=== PATIENT | female | born 1990 | race Caucasian/White ===

== ENCOUNTER 2022-08-09 19:59 | Inpatient (IN) | payer OTHER ==
[2022-08-09 20:04] VITALS: BMI 44.4
[2022-08-09] MEDS ORDERED: SODIUM CHLORIDE 0.9% 500 ML INFUS.BAG IV ONE ×2 (20:57→22:15)
[2022-08-09] MEDS ORDERED: ONDANSETRON 4 MG/2 ML VIAL IVPUSH ONE (20:57)
[2022-08-09] MEDS ORDERED: ACETAMINOPHEN 1000 MG/100 ML BAG IVPB ONE (20:57)
[2022-08-09] MEDS ORDERED: ONDANSETRON 4 MG/2 ML VIAL ONE (21:29)
[2022-08-09] MEDS ORDERED: ACETAMINOPHEN INJECTION 100 ML IVPB ONE (21:29)
[2022-08-09 22:07] LABS: BASO % 0.2 % (0-2.0); HEMATOCRIT 44.1 % (32.4-45.2); HEMOGLOBIN 14.1 GM/dL (10.7-15.3); MCH 26.8 pg (25.7-33.7); MCHC 31.8 g/dl (32.0-36.0); MEAN PLT VOLUME 8.7 fl (7.5-11.1); MONO % 3.2 % (3.8-10.2); NEUT % 90.6 % (42.8-82.8); PLATELET COUNT 351 10^3/uL (134-434); RBC 5.25 M/mm3 (3.60-5.2); RDW 14.6 % (11.6-15.6); WHITE BLOOD COUNT 18.7 K/mm3 (4.0-10.0)
[2022-08-09 22:08] LABS: ALBUMIN 3.6 g/dl (3.4-5.0); BLOOD UREA NITROGEN 14.3 mg/dL (7-18); CALCIUM 9.6 mg/dL (8.5-10.1)
[2022-08-09 22:11] LABS: CREATININE 1.2 mg/dL (0.55-1.3)
[2022-08-09 22:11] LABS: EPI CELLS >36 /uL (0-25.1); HCG,QUALITATIVE URINE Negative; HYALINE CASTS 2 /uL (0-3.1); PH,URINE 5.5 (5.0-8.0); URINE APPEARANCE CLOUDY; URINE BACTERIA 1137 /uL (0-1359); URINE BILIRUBIN NEGATIVE (NEGATIVE); URINE COLOR YELLOW; URINE GLUCOSE (UA) NEGATIVE (NEGATIVE); URINE KETONE 2+ (NEGATIVE); URINE LEUK ESTERASE NEGATIVE (NEGATIVE); URINE NITRITE NEGATIVE (NEGATIVE); URINE PROTEIN TRACE (NEGATIVE); URINE RBC 1716 /uL (0-23.9); URINE WBC 29 /uL (0-25.8)
[2022-08-09 22:13] LABS: BILIRUBIN,TOTAL 0.3 mg/dL (0.2-1); TOT PROT 7.8 g/dl (6.4-8.2)
[2022-08-09 22:44] LABS: URINE CRYSTALS NEGATIVE /hpf
[2022-08-10] MEDS ORDERED: CEFTRIAXONE 1,000 MG in DEXTROSE 5%-WATER - 50 ML IVPB ONE (00:55)
[2022-08-10] MEDS ORDERED: CEFTRIAXONE 1 GM/50 ML BAG ONE (01:33)
[2022-08-10] MEDS ORDERED: TAMSULOSIN HCL 0.4 MG CAP PO ONE (01:42)
[2022-08-10] MEDS ORDERED: TAMSULOSIN HCL 0.4 MG CAP ONE (02:25)
[2022-08-10] MEDS ORDERED: ACETAMINOPHEN 1000 MG/100 ML BAG IVPB PRN (02:32)
[2022-08-10] MEDS ORDERED: SODIUM CHLORIDE 1,000 ML IV SCH (02:45)
[2022-08-10] MEDS ORDERED: ONDANSETRON 4 MG/2 ML VIAL IVPUSH PRN (05:00)
[2022-08-10] MEDS ORDERED: MELATONIN 5 MG TABLETS PO PRN (05:06)
[2022-08-10 07:13] LABS: BASO % 0.5 % (0-2.0); EOS % 0.5 % (0-4.5); HEMOGLOBIN 13.1 GM/dL (10.7-15.3); LYMPH % 21.8 % (8-40); MCH 27.3 pg (25.7-33.7); MCHC 32.6 g/dl (32.0-36.0); MEAN CELL VOLUME 83.7 fl (80-96); MEAN PLT VOLUME 8.3 fl (7.5-11.1); MONO % 7.4 % (3.8-10.2); NEUT % 69.8 % (42.8-82.8); PLATELET COUNT 319 10^3/uL (134-434); RBC 4.79 M/mm3 (3.60-5.2); RDW 14.5 % (11.6-15.6); WHITE BLOOD COUNT 15.1 K/mm3 (4.0-10.0)
[2022-08-10 07:52] LABS: ALBUMIN 3.1 g/dl (3.4-5.0)
[2022-08-10 07:55] LABS: CREATININE 0.9 mg/dL (0.55-1.3); URIC ACID 4.8 mg/dL (2.6-7.2)
[2022-08-10 07:57] LABS: BILIRUBIN,TOTAL 0.4 mg/dL (0.2-1); PHOSPHOROUS 3.2 mg/dL (2.5-4.9); TOT PROT 6.8 g/dl (6.4-8.2)
[2022-08-10 09:07] LABS: INR 1.19 (0.83-1.09); PROTHROMBIN TIME (PATIENT) 13.7 SEC (9.7-13.0)
[2022-08-10] MEDS ORDERED: ENOXAPARIN NA (PORCINE) 40 MG/0.4 ML DISP.SYRIN SQ SCH ×2 (10:00)
[2022-08-10] MEDS ORDERED: TAMSULOSIN HCL 0.4 MG CAP PO SCH (12:00)
[2022-08-10 12:38] VITALS: BP 127/84; PULSE 92; RESP 18; TEMP 97.9
[2022-08-11] MEDS ORDERED: CEFTRIAXONE 1 GM in DEXTROSE 5%-WATER - 50 ML IVPB SCH (00:55)
== END 2022-08-10 12:50 | disposition home or self-care (01) | DRG 463 ==
LOC: JER 19:59 → JERBED 08-10 01:00
PROVIDERS: ADMIT Internal Medicine; ATTEND Internal Medicine
DX: N13.6 Pyonephrosis (principal); Z68.41 Body mass index [BMI] 40.0-44.9, adult; E66.01 Morbid (severe) obesity due to excess calories; R11.2 Nausea with vomiting, unspecified; R62.50 Unspecified lack of expected normal physiological development in childhood
CPT/HCPCS: 36415; 74177-TC; 80053; 81003; 83036; 83605; 83690; 83735; 83970; 84100; 84550; 84703; 85025; 85610; 87040; 87086; 93005; 93010; 99285-25; C9803-CS; U0003; U0005

== ENCOUNTER 2023-03-28 10:10 | Emergency (ER) | payer OTHER ==
[2023-03-28 10:22] VITALS: BP 128/89; PULSE 109; RESP 20; TEMP 98.2; BMI 43.7
[2023-03-28] MEDS ORDERED: ACETAMINOPHEN 1000 MG/100 ML BAG IVPB ONE (11:01)
[2023-03-28] MEDS ORDERED: SODIUM CHLORIDE 0.9% 500 ML INFUS.BAG IV ONE (11:01)
[2023-03-28] MEDS ORDERED: ONDANSETRON 4 MG/2 ML VIAL IVPUSH ONE (11:01)
[2023-03-28] MEDS ORDERED: ACETAMINOPHEN INJECTION 100 ML IVPB ONE (11:17)
[2023-03-28] MEDS ORDERED: ONDANSETRON 4 MG/2 ML VIAL ONE (11:20)
[2023-03-28 11:33] LABS: PH,URINE 5.5 (5.0-8.0); URINE APPEARANCE CLOUDY; URINE BILIRUBIN NEGATIVE (NEGATIVE); URINE COLOR YELLOW; URINE GLUCOSE (UA) NEGATIVE (NEGATIVE); URINE KETONE TRACE (NEGATIVE); URINE LEUK ESTERASE NEGATIVE (NEGATIVE); URINE NITRITE NEGATIVE (NEGATIVE); URINE PROTEIN NEGATIVE (NEGATIVE); URINE UROBILINOGEN 0.2 mg/dL (0.2-1.0)
[2023-03-28 11:38] LABS: BASO % 0.3 % (0-2.0); HEMATOCRIT 42.8 % (32.4-45.2); HEMOGLOBIN 13.9 GM/dL (10.7-15.3); LYMPH % 20.4 % (8-40); MCH 26.8 pg (25.7-33.7); MCHC 32.4 g/dl (32.0-36.0); MEAN CELL VOLUME 82.7 fl (80-96); MEAN PLT VOLUME 8.7 fl (7.5-11.1); MONO % 6.9 % (3.8-10.2); NEUT % 71.4 % (42.8-82.8); PLATELET COUNT 364 10^3/uL (134-434); RBC 5.18 M/mm3 (3.60-5.2); RDW 14.4 % (11.6-15.6); WHITE BLOOD COUNT 11.2 K/mm3 (4.0-10.0)
[2023-03-28 11:53] LABS: POTASSIUM 4.2 mmol/L (3.5-5.1)
[2023-03-28 11:55] LABS: CALCIUM 9.8 mg/dL (8.5-10.1)
[2023-03-28 11:56] LABS: BLOOD UREA NITROGEN 10.9 mg/dL (7-18)
[2023-03-28 11:58] LABS: CREATININE 0.9 mg/dL (0.55-1.3)
[2023-03-28 12:00] LABS: BILIRUBIN,TOTAL 0.3 mg/dL (0.2-1); TOT PROT 8.2 g/dl (6.4-8.2)
== END 2023-03-28 12:58 | disposition home or self-care (01) ==
LOC: JERFT 10:10 → JER 10:10 → JERFT 12:58
PROC: 3E033NZ Introduction of Analgesics, Hypnotics, Sedatives into Peripheral Vein, Percutaneous Approach (ICD-10-PCS; principal; 2023-03-28)
PROC: 3E033GC Introduction of Other Therapeutic Substance into Peripheral Vein, Percutaneous Approach (ICD-10-PCS; 2023-03-28)
DX: R10.84 Generalized abdominal pain (principal); R11.2 Nausea with vomiting, unspecified; K52.9 Noninfective gastroenteritis and colitis, unspecified; Z20.822 Contact with and (suspected) exposure to COVID-19
CPT/HCPCS: 0241U-QW; 36415; 80053; 81003; 83690; 85025; 87086; 99284-25